=== PATIENT | female | born 1995 | race American Indian/Alaskan Native ===

== ENCOUNTER 2017-02-23 14:29 | Emergency (ER) | payer MEDICAID, OTHER ==
[2017-02-23 15:52] LABS: Urine Drugs of Abuse Note Disclamer
[2017-02-23 16:03] LABS: Basophils % (Auto) 0.9 % (0.0-1.8); Eosinophils % (Auto) 3.4 % (0.0-4.3); Hematocrit 40.6 % (30.3-42.9); Hemoglobin 13.6 gm/dl (10.1-14.3); Mean Corpuscular HGB Conc 34 % (30-34); Mean Corpuscular Hemoglobin 29 pg (28-32); Mean Corpuscular Volume 87 fl (79-97); Platelet Count 195 K/mm3 (140-440); Red Blood Count 4.65 M/mm3 (3.65-5.03); Red Cell Distribution Width 14.5 % (13.2-15.2); White Blood Count 6.4 K/mm3 (4.5-11.0)
[2017-02-23 16:04] LABS: Anion Gap 19 mmol/L; BUN/Creatinine Ratio 11.25; Blood Urea Nitrogen 9 mg/dL (7-17); Calcium 9.3 mg/dL (8.4-10.2); Carbon Dioxide 21 mmol/L (22-30); Glucose 85 mg/dL (65-100); Potassium 4.3 mmol/L (3.6-5.0); Sodium 140 mmol/L (137-145)
[2017-02-23 16:12] LABS: Bacteria,Urine 2+ /HPF (Negative); Bilirubin,Urine NEG (Negative); Blood,Urine NEG (Negative); Ketones,Urine TR mg/dL (Negative); Leukocyte Esterase,Urine MOD (Negative); Mucus,Urine 3+ /HPF; Nitrite,Urine NEG (Negative)
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
[2017-02-23] MEDS ORDERED: HABITROL TD ONE (21:26)
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
[2017-02-24 18:17] VITALS: BP 119/74
== END 2017-02-24 20:15 ==
LOC: EDBD → EEVIPCON 14:29 → ED 14:29
DX: O9A.211 Injury, poisoning and certain other consequences of external causes complicating pregnancy, first trimester (principal); O99.331 Smoking (tobacco) complicating pregnancy, first trimester; T54.92XA Toxic effect of unspecified corrosive substance, intentional self-harm, initial encounter; F12.10 Cannabis abuse, uncomplicated; Z3A.08 8 weeks gestation of pregnancy; Y92.89 Other specified places as the place of occurrence of the external cause
CPT/HCPCS: 36415; 80048; 80307; 81001; 81025; 85025; 99285; G0480; 80320

== ENCOUNTER 2017-03-07 11:41 | Emergency (ER) | payer OTHER ==
[2017-03-07 12:50] VITALS: BP 109/70
[2017-03-07 13:12] LABS: Basophils % (Auto) 0.8 % (0.0-1.8); Eosinophils % (Auto) 2.9 % (0.0-4.3); Hematocrit 39.8 % (30.3-42.9); Hemoglobin 13.3 gm/dl (10.1-14.3); Mean Corpuscular HGB Conc 33 % (30-34); Mean Corpuscular Hemoglobin 29 pg (28-32); Mean Corpuscular Volume 88 fl (79-97); Platelet Count 194 K/mm3 (140-440); Red Blood Count 4.53 M/mm3 (3.65-5.03); Red Cell Distribution Width 14.1 % (13.2-15.2); White Blood Count 6.7 K/mm3 (4.5-11.0)
[2017-03-07 13:28] LABS: Anion Gap 17 mmol/L; BUN/Creatinine Ratio 15.71; Blood Urea Nitrogen 11 mg/dL (7-17); Calcium 9.4 mg/dL (8.4-10.2); Carbon Dioxide 25 mmol/L (22-30); Chloride 98.3 mmol/L (98-107); Glucose 76 mg/dL (65-100); Potassium 4.1 mmol/L (3.6-5.0); Sodium 136 mmol/L (137-145)
[2017-03-07 13:53] LABS: Bacteria,Urine 2+ /HPF (Negative); Bilirubin,Urine NEG (Negative); Blood,Urine NEG (Negative); Ketones,Urine NEG (Negative); Leukocyte Esterase,Urine LG (Negative); Mucus,Urine FEW /HPF; Nitrite,Urine NEG (Negative); Protein,Urine <15 mg/dL mg/dL (Negative)
--- NOTE | 2017-03-08 14:39 | ED Elopement Review ---
ED Pt Elopement review - Results review Lab results: Laboratory Tests 03/07/17 03/07/17 03/07/17 12:53 12:53 12:53 WBC 6.7 RBC 4.53 Hgb 13.3 Hct 39.8 MCV 88 MCH 29 MCHC 33 RDW 14.1 Plt Count 194 Lymph % (Auto) 41.2 H [place] % (Auto) 7.8 H Eos % (Auto) 2.9 Baso % (Auto) 0.8 Lymph # 2.8 [place] # 0.5 Eos # 0.2 Baso # 0.1 Seg Neutrophils % 47.3 Seg Neutrophils # 3.2 Sodium 136 L Potassium 4.1 Chloride 98.3 Carbon Dioxide 25 Anion Gap 17 BUN 11 Creatinine 0.7 Estimated GFR > 60 BUN/Creatinine Ratio 15.71 Glucose 76 Calcium 9.4 HCG, Quant [id number] H Urine Color Urine Turbidity Urine pH Ur Specific [place] Urine Protein Urine Glucose (UA) Urine Ketones Urine Blood Urine Nitrite Urine Bilirubin Urine Urobilinogen Ur Leukocyte Esterase Urine WBC (Auto) Urine RBC (Auto) U Epithel Cells (Auto) Urine Bacteria (Auto) Urine Mucus 03/07/17 13:28 WBC RBC Hgb Hct MCV MCH MCHC RDW Plt Count Lymph % (Auto) [place] % (Auto) Eos % (Auto) Baso % (Auto) Lymph # [place] # Eos # Baso # Seg Neutrophils % Seg Neutrophils # Sodium Potassium Chloride Carbon Dioxide Anion Gap BUN Creatinine Estimated GFR BUN/Creatinine Ratio Glucose Calcium HCG, Quant Urine Color Yellow Urine Turbidity Clear Urine pH 5.0 Ur Specific [place] 1.025 Urine Protein <15 mg/dl Urine Glucose (UA) Neg Urine Ketones Neg Urine Blood Neg Urine Nitrite Neg Urine Bilirubin Neg Urine Urobilinogen 2.0 Ur Leukocyte Esterase Lg Urine WBC (Auto) 5.0 Urine RBC (Auto) 1.0 U Epithel Cells (Auto) 8.0 Urine Bacteria (Auto) 2+ Urine Mucus Few - Call Back decision Pt Call Back Decision: Call pt to return to ED KIRAN (early with abdominal pain should be further evaluated. Consider pelvic ultrasound)
== END 2017-03-07 13:28 | disposition left against medical advice (07) ==
LOC: ED 11:41
DX: O26.891 Other specified pregnancy related conditions, first trimester (principal); R10.30 Lower abdominal pain, unspecified; F31.9 Bipolar disorder, unspecified; F17.200 Nicotine dependence, unspecified, uncomplicated; Z3A.01 Less than 8 weeks gestation of pregnancy; Z91.040 Latex allergy status; Z53.21 Procedure and treatment not carried out due to patient leaving prior to being seen by health care provider
CPT/HCPCS: 36415; 80048; 81001; 84702; 85025

== ENCOUNTER 2017-03-09 08:57 | Emergency (ER) | payer OTHER ==
[2017-03-09 09:40] LABS: Basophils % (Auto) 0.8 % (0.0-1.8); Eosinophils % (Auto) 2.5 % (0.0-4.3); Hemoglobin 13.6 gm/dl (10.1-14.3); Mean Corpuscular HGB Conc 32 % (30-34); Mean Corpuscular Hemoglobin 29 pg (28-32); Mean Corpuscular Volume 88 fl (79-97); Platelet Count 208 K/mm3 (140-440); Red Blood Count 4.75 M/mm3 (3.65-5.03); Red Cell Distribution Width 14.3 % (13.2-15.2); White Blood Count 6.5 K/mm3 (4.5-11.0)
[2017-03-09] MEDS ORDERED: PROVENTIL IH ONE (09:46)
--- NOTE | 2017-03-09 09:49 | Emergency Department Report ---
HPI - General Chief Complaint: Abdominal Pain Time Seen by Provider: 03/09/17 09:25 - HPI HPI: 21 year-old female presents to the emergency department with a 2 day history of some lower abdominal discomfort that seems to radiate towards her back as well as some shortness of breath. She denies any fever, cough, chest pain, nausea, vomiting or diaphoresis. Patient is currently and thinks she is about 7 weeks along but admits that it may be further than that. She goes to [facility]. She is on vitamins. She has not taken anything for her symptoms prior to presentation. She denies tobacco abuse. No recent travel or sick contacts at home. She denies any dysuria, discharge or vaginal bleeding but does say that today she went to wipe herself and noticed some yellowy mucus on the toilet paper. ED Past Medical Hx - Past Medical History Previous Medical History?: Yes Hx Hypertension: No Hx Congestive Heart Failure: No Hx Diabetes: No Hx Deep Vein Thrombosis: No Hx Renal Disease: No Hx Sickle Cell Disease: No Hx Seizures: No Hx Psychiatric Treatment: Yes (bipolar / depression) Hx Asthma: No Hx COPD: No Hx HIV: No Additional medical history: TNC sucide attemps - Surgical History Past Surgical History?: Yes Additional Surgical History: - Social History Smoking Status: Never Smoker Substance Use Type: None - Medications Home Medications: Home Medications Medication Instructions Recorded Confirmed Last Taken Type ALBUTEROL Inhaler [ProAir HFA 2 puff IH QID PRN #1 inhalation 03/09/17 Unknown Rx Inhaler] Nitrofurantoin Kerr/M-Cryst 100 mg PO Q12HR #14 capsule 03/09/17 Unknown Rx [Macrobid CAP] ED Review of Systems ROS: Stated complaint: [place]/ BACK PAIN/ 7 WEEKS PREG Other details as noted in HPI Comment: All other systems reviewed and negative Constitutional: denies: chills, fever Eyes: denies: eye pain, eye discharge, vision change ENT: denies: ear pain, throat pain Respiratory: shortness of breath. denies: cough, wheezing Cardiovascular: denies: chest pain, palpitations Gastrointestinal: abdominal pain. denies: vomiting Genitourinary: denies: dysuria, hematuria Musculoskeletal: back pain. denies: arthralgia Skin: denies: rash, lesions Neurological: denies: headache, weakness, paresthesias Physical Exam - Physical Exam Vital Signs: Vital Signs 03/09/17 09:08 Temperature 98.3 F Pulse Rate 99 H Respiratory 18 Rate Blood Pressure 121/86 O2 Sat by Pulse 100 Oximetry Physical Exam: GENERAL: The patient is well-developed well-nourished. HENT: Normocephalic. Atraumatic. Patient has moist mucous membranes. EYES: Extraocular motions are intact. Pupils equal reactive to light bilaterally. NECK: Supple. Trachea is midline. CHEST/LUNGS: Clear to auscultation. There is no respiratory distress noted. HEART/CARDIOVASCULAR: Regular. There is no tachycardia. There is no gallop rub or murmur. ABDOMEN: Abdomen is soft, nontender. Patient has normal bowel sounds. There is no abdominal distention. SKIN: Skin is warm and dry. NEURO: The patient is awake, alert, and oriented. The patient is cooperative. The patient has no focal neurologic deficits. The patient has normal speech. MUSCULOSKELETAL: There is no tenderness or deformity. There is no limitation range of motion. There is no evidence of acute injury. ED Course Vital Signs 03/09/17 09:08 Temperature 98.3 F Pulse Rate 99 H Respiratory 18 Rate Blood Pressure 121/86 O2 Sat by Pulse 100 Oximetry ED Medical Decision Making - Lab Data Result diagrams: 03/09/17 09:23 03/09/17 09:23 - Radiology Data Radiology results: report reviewed, image reviewed interpreted by me: Chest x-ray does not show any acute process. There are no pleural effusions, obvious pneumonia and there is no pneumothorax. Obstetric/transvaginal ultrasound shows a live intrauterine at 5 weeks and 5 days. Small subchorionic hemorrhage. - Medical Decision Making 21-year-old female presents to the emergency department with a few days of some shortness of breath that is intermittent as well as some lower abdominal discomfort while . There has been no vaginal bleeding, discharge, dysuria. She does not appear to be in any acute distress. She has a healthy 80 hCG/ hormone and ultrasound shows a live intrauterine at about 6 weeks with a small subchorionic bleed. A chest x-ray was done with the abdomen shielded and the results does not show any signs of pneumonia, pleural effusions or pneumothorax. She was given a dose of albuterol via nebulized treatment. She was reevaluated multiple times for multiple hours and says she is feeling greatly improved. The patient is very low on the well's score and has about a 1% probability, based on this, for pulmonary embolism, which is the same as the general population. She has not had any tachycardia, hypoxia, chest pain and no longer has any shortness of breath. The patient will be discharged home to follow up with [facility] and will be given an albuterol inhaler to use for any shortness of breath but has been encouraged to return to the emergency Department with any worsening of her symptoms or any acute distress. Critical Care Time: No Critical care attestation.: If time is entered above; I have spent that time in minutes in the direct care of this critically ill patient, excluding procedure time. ED Disposition Clinical Impression: Shortness of breath Qualifiers: Weeks of gestation: less than 8 weeks Qualified Code(s): Z3A.01 - Less than 8 weeks gestation of UTI (urinary tract infection) Qualifiers: Urinary tract infection type: acute cystitis Hematuria presence: without hematuria Qualified Code(s): N30.00 - Acute cystitis without hematuria Disposition: TO HOME OR SELFCARE Is pt being admited?: No Condition: Stable Instructions: (ED), Urinary Tract Infection in Women (ED), Abdominal Pain (ED), Dyspnea (ED) Additional Instructions: Please follow up with my [facility] in the next few days for further evaluation of her , resolution of your urinary tract infection and for any other OB/ [employer]ER complaints. I have also given you a referral for some local primary care physicians. Return to the emergency Department with any worsening of your symptoms or any acute distress. I have prescribed you some Macrobid, an antibiotic, for your urinary tract infection. I have also given you a prescription for an albuterol inhaler for any wheezing or shortness of breath. Do not use the albuterol inhaler once you get to your third trimester, unless cleared by your [facility]. Prescriptions: ALBUTEROL Inhaler [ProAir HFA Inhaler] 2 puff IH QID PRN #1 inhalation PRN Reason: Shortness Of Breath Nitrofurantoin Kerr/M-Cryst [Macrobid CAP] 100 mg PO Q12HR #14 capsule Referrals: RODRICK MELGAR MD [Primary Care Provider] - 3-5 Days THOMAS MARIO JR, MD [Staff Physician] - 3-5 Days SUNDAY OCONNELL MD [Staff Physician] - 3-5 Days [facility] [Outside] - 3-5 Days [facility] [Provider Group] - 3-5 Days Time of Disposition: 12:21
[2017-03-09 10:01] LABS: Alanine Aminotransferase 16 units/L (7-56); Albumin 4.3 g/dL (3.9-5); Albumin/Globulin Ratio 1.4 %; Alkaline Phosphatase 65 units/L (35-129); Anion Gap 18 mmol/L; BUN/Creatinine Ratio 11.42; Blood Urea Nitrogen 8 mg/dL (7-17); Calcium 9.3 mg/dL (8.4-10.2); Carbon Dioxide 23 mmol/L (22-30); Chloride 101.1 mmol/L (98-107); Glucose 91 mg/dL (65-100); Lipase 33 units/L (13-60); Potassium 4.2 mmol/L (3.6-5.0); Sodium 138 mmol/L (137-145); Total Protein 7.4 g/dL (6.3-8.2)
[2017-03-09 10:20] LABS: Bacteria,Urine 3+ /HPF (Negative); Bilirubin,Urine NEG (Negative); Blood,Urine NEG (Negative); Ketones,Urine NEG (Negative); Leukocyte Esterase,Urine LG (Negative); Mucus,Urine 1+ /HPF; Nitrite,Urine NEG (Negative)
[2017-03-09] MEDS ORDERED: MACROBID PO ONE (10:54)
--- NOTE | 2017-03-09 12:10 | Ultrasound Report ---
ULTRASOUND OB LESS THAN 14 WEEKS FETUS ULTRASOUND OB TRANSVAGINAL HISTORY: Abdominal pain during . TECHNIQUE: Transabdominal and transvaginal ultrasound with color and spectral doppler interrogation. The uterus measures 8.4 x 5.9 x 6.0 cm. The uterus is retroverted. Small intrauterine gestational sac containing a pole and yolk sac is identified. Heart rate measures 90 beats per minute. [place]-rump length measures 2.2 mm which correlates with a 5 weeks, 5 day . Estimated due date is 11/04/17. A small subchorionic hemorrhage is identified along the superior border of the gestational sac measuring 1.0 x 0.4 x 1.1 cm. Both ovaries are visualized. The left ovary is normal. The right ovary contains a 2.2 cm corpus luteum cyst. Trace pelvic fluid appears physiologic. IMPRESSION: Viable, single intrauterine . Small subchorionic hemorrhage.
--- NOTE | 2017-03-09 12:15 | XRay Report ---
AP CHEST: HISTORY: Shortness of breath AP view of the chest demonstrates a normal mediastinal and cardiac contour with clear lungs and normal bony and soft tissue structures. IMPRESSION: Unremarkable AP chest.
[2017-03-09 12:31] VITALS: BP 117/73
== END 2017-03-09 12:31 | disposition home or self-care (01) ==
LOC: ED 08:57
DX: O23.41 Unspecified infection of urinary tract in pregnancy, first trimester (principal); O26.891 Other specified pregnancy related conditions, first trimester; R06.02 Shortness of breath; Z3A.01 Less than 8 weeks gestation of pregnancy; F31.9 Bipolar disorder, unspecified
CPT/HCPCS: 36415; 71010; 76801; 76817; 80053; 81001; 83690; 84702; 85025; 93005; 93010; 94640

== ENCOUNTER 2017-03-15 21:29 | Emergency (ER) | payer OTHER ==
[2017-03-15 23:22] LABS: Alanine Aminotransferase 15 units/L (7-56); Albumin 3.9 g/dL (3.9-5); Albumin/Globulin Ratio 1.2 %; Alkaline Phosphatase 63 units/L (35-129); Anion Gap 18 mmol/L; Blood Urea Nitrogen 14 mg/dL (7-17); Carbon Dioxide 22 mmol/L (22-30); Chloride 99.7 mmol/L (98-107); Glucose 98 mg/dL (65-100); Potassium 4.1 mmol/L (3.6-5.0); Sodium 136 mmol/L (137-145); Total Protein 7.2 g/dL (6.3-8.2)
[2017-03-15 23:31] LABS: Hematocrit 38.9 % (30.3-42.9); Hemoglobin 12.5 gm/dl (10.1-14.3); Mean Corpuscular HGB Conc 32 % (30-34); Mean Corpuscular Hemoglobin 29 pg (28-32); Mean Corpuscular Volume 88 fl (79-97); Platelet Count 215 K/mm3 (140-440); Red Cell Distribution Width 14.5 % (13.2-15.2); White Blood Count 9.5 K/mm3 (4.5-11.0)
[2017-03-15 23:46] LABS: Bacteria,Urine 1+ /HPF (Negative); Bilirubin,Urine NEG (Negative); Blood,Urine NEG (Negative); Ketones,Urine NEG (Negative); Leukocyte Esterase,Urine SM (Negative); Mucus,Urine FEW /HPF; Nitrite,Urine NEG (Negative); Protein,Urine <15 mg/dL mg/dL (Negative)
[2017-03-16] MEDS ORDERED: TYLENOL PO ONE (06:22)
--- NOTE | 2017-03-16 07:25 | Emergency Department Report ---
ED General Adult HPI - General Chief complaint: Neck Pain/Injury Stated complaint: CP/NECK PAIN/PREG 6WKS Time Seen by Provider: 03/16/17 06:07 Source: patient Mode of arrival: Wheelchair Limitations: No Limitations - History of Present Illness Initial comments: Patient is a 21-year-old female who presents with neck pain that started 2 days ago and radiates to her left upper chest and she states that the onset was gradual. The pain is located in her left neck and the pain is a 7 out of 10 moving makes the pain worse resting makes it better. It is an achy type of pain it is intermittent. Patient denies having any trauma to her neck she also states that she has nausea and vomiting after taking her urinary tract infection medication. Patient is 6 weeks . She denies having any vaginal bleeding or any pelvic pain or any vaginal discharge. Severity scale (0 -10): 5 - Related Data Previous Rx's Medication Instructions Recorded Last Taken Type Nitrofurantoin Rhea/M-Cryst 100 mg PO Q12HR #14 capsule 03/09/17 Unknown Rx [Macrobid CAP] ALBUTEROL Inhaler [ProAir HFA 2 puff IH QID PRN #1 inhalation 03/16/17 Unknown Rx Inhaler] Acetaminophen [Acetaminophen TAB] 1,000 mg PO Q6HR PRN #60 tablet 03/16/17 Unknown Rx Allergies Allergy/AdvReac Type Severity Reaction Status Date / Time latex Allergy Rash Verified 03/07/17 12:45 ED Review of Systems ROS: Stated complaint: CP/NECK PAIN/PREG 6WKS Other details as noted in HPI Constitutional: denies: chills, fever Eyes: denies: eye pain, eye discharge, vision change ENT: denies: ear pain, throat pain Respiratory: denies: cough, shortness of breath, wheezing Cardiovascular: denies: chest pain, palpitations Endocrine: no symptoms reported Gastrointestinal: nausea, vomiting. denies: abdominal pain, diarrhea Genitourinary: denies: urgency, dysuria, discharge Musculoskeletal: other (neck pain). denies: back pain, joint swelling, arthralgia Skin: denies: rash, lesions Neurological: denies: headache, weakness, paresthesias Psychiatric: denies: anxiety, depression Hematological/Lymphatic: denies: easy bleeding, easy bruising ED Past Medical Hx - Past Medical History Hx Hypertension: No Hx Congestive Heart Failure: No Hx Diabetes: No Hx Deep Vein Thrombosis: No Hx Renal Disease: No Hx Sickle Cell Disease: No Hx Seizures: No Hx Psychiatric Treatment: Yes (bipolar / depression) Hx Asthma: No Hx COPD: No Hx HIV: No Additional medical history: TNC sucide attemps - Surgical History Additional Surgical History: - Social History Smoking Status: Current Every Day Smoker Substance Use Type: None - Medications Home Medications: Home Medications Medication Instructions Recorded Confirmed Last Taken Type Nitrofurantoin Rhea/M-Cryst 100 mg PO Q12HR #14 capsule 03/09/17 Unknown Rx [Macrobid CAP] ALBUTEROL Inhaler [ProAir HFA 2 puff IH QID PRN #1 inhalation 03/16/17 Unknown Rx Inhaler] Acetaminophen [Acetaminophen TAB] 1,000 mg PO Q6HR PRN #60 tablet 03/16/17 Unknown Rx ED Physical Exam - General Limitations: No Limitations General appearance: alert, in no apparent distress - Head Head exam: Present: atraumatic, normocephalic - Eye Eye exam: Present: normal appearance - ENT ENT exam: Present: mucous membranes moist - Neck Neck exam: Present: normal inspection, other (paracervical tenderness) - Respiratory Respiratory exam: Present: normal lung sounds bilaterally. Absent: respiratory distress - Cardiovascular Cardiovascular Exam: Present: regular rate, normal rhythm. Absent: systolic murmur, diastolic murmur, rubs, gallop - GI/Abdominal GI/Abdominal exam: Present: soft, normal bowel sounds - Extremities Exam Extremities exam: Present: normal inspection - Back Exam Back exam: Present: normal inspection - Neurological Exam Neurological exam: Present: alert, oriented X3 - Psychiatric Psychiatric exam: Present: normal affect, normal mood - Skin Skin exam: Present: warm, dry, intact, normal color. Absent: rash ED Course Vital Signs 03/15/17 03/16/17 22:14 04:54 Temperature 99.1 F 98.2 F Pulse Rate 77 64 Respiratory 18 17 Rate Blood Pressure 116/74 Blood Pressure 107/58 [Left] O2 Sat by Pulse 100 100 Oximetry - Reevaluation(s) Reevaluation #1: 03/16/17 07:25 Patient is feeling better after Tylenol I will send patient home with albuterol inhaler and Tylenol prescription. ED Medical Decision Making - Lab Data Result diagrams: 03/15/17 22:41 03/15/17 22:41 Laboratory Results - last 24 hr 03/15/17 03/15/17 03/15/17 22:41 22:41 22:41 WBC 9.5 RBC 4.40 Hgb 12.5 Hct 38.9 MCV 88 MCH 29 MCHC 32 RDW 14.5 Plt Count 215 Sodium 136 L Potassium 4.1 Chloride 99.7 Carbon Dioxide 22 Anion Gap 18 BUN 14 Creatinine 0.7 Estimated GFR > 60 BUN/Creatinine Ratio 20.00 Glucose 98 Calcium 9.0 Total Bilirubin 0.20 AST 18 ALT 15 Alkaline Phosphatase 63 Total Protein 7.2 Albumin 3.9 Albumin/Globulin Ratio 1.2 HCG, Quant 45459 H Urine Color Urine Turbidity Urine pH Ur Specific [place] Urine Protein Urine Glucose (UA) Urine Ketones Urine Blood Urine Nitrite Urine Bilirubin Urine Urobilinogen Ur Leukocyte Esterase Urine WBC (Auto) Urine RBC (Auto) U Epithel Cells (Auto) Urine Bacteria (Auto) Amorphous Crystals Urine Mucus 03/15/17 23:00 WBC RBC Hgb Hct MCV MCH MCHC RDW Plt Count Sodium Potassium Chloride Carbon Dioxide Anion Gap BUN Creatinine Estimated GFR BUN/Creatinine Ratio Glucose Calcium Total Bilirubin AST ALT Alkaline Phosphatase Total Protein Albumin Albumin/Globulin Ratio HCG, Quant Urine Color Yellow Urine Turbidity Slightly-cloudy Urine pH 7.0 Ur Specific [place] 1.023 Urine Protein <15 mg/dl Urine Glucose (UA) Neg Urine Ketones Neg Urine Blood Neg Urine Nitrite Neg Urine Bilirubin Neg Urine Urobilinogen 2.0 Ur Leukocyte Esterase Sm Urine WBC (Auto) 2.0 Urine RBC (Auto) 2.0 U Epithel Cells (Auto) 6.0 Urine Bacteria (Auto) 1+ Amorphous Crystals Few Urine Mucus Few - EKG Data 03/16/17 07:27 EKG shows normal sinus rhythm with sinus arrhythmia normal axis no ST segment elevations or T-wave inversions. - Medical Decision Making Chief medical diagnosis: Cervicalgia Differential medical diagnosis: muscle spasm, I will get CBC, CMP, hCG serum, EKG for nausea Patient is feeling better and tolerated by mouth Tylenol I will send. Patient with a prescription home for her albuterol inhaler which she lost and Tylenol. Initial verbal discharge instructions were given discussed the patient is a follow-up with her [facility]OLOGY [facility]. Patient does not need any imaging for her neck pain as she had no trauma towards the area and can move it without any distress. Critical care attestation.: If time is entered above; I have spent that time in minutes in the direct care of this critically ill patient, excluding procedure time. ED Disposition Clinical Impression: Neck pain Qualifiers: Weeks of gestation: less than 8 weeks Qualified Code(s): Z3A.01 - Less than 8 weeks gestation of Disposition: TO HOME OR SELFCARE Is pt being admited?: No Does the pt Need Aspirin: No Condition: Stable Prescriptions: Acetaminophen [Acetaminophen TAB] 1,000 mg PO Q6HR PRN #60 tablet PRN Reason: Pain ALBUTEROL Inhaler [ProAir HFA Inhaler] 2 puff IH QID PRN #1 inhalation PRN Reason: Shortness Of Breath Referrals: PRIMARY CAREMD [Primary Care Provider] - 3-5 Days RIGOBERTO MONTERO MD [Staff Physician] - 3-5 Days Time of Disposition: 07:38
[2017-03-16 07:27] VITALS: BP 110/62
== END 2017-03-16 08:09 | disposition home or self-care (01) ==
LOC: ED 21:29
DX: O26.891 Other specified pregnancy related conditions, first trimester (principal); M54.2 Cervicalgia; O99.331 Smoking (tobacco) complicating pregnancy, first trimester; Z3A.01 Less than 8 weeks gestation of pregnancy
CPT/HCPCS: 36415; 80053; 81001; 84702; 85027; 93005; 93010

== ENCOUNTER 2017-10-12 16:23 | Outpatient (CLI) | payer OTHER ==
[2017-10-12] MEDS ORDERED: LACTATED RINGERS 500 ML IV ONE (17:41)
[2017-10-12 17:56] VITALS: BP 100/60
== END 2017-10-12 18:09 | disposition home or self-care (01) ==
LOC: EDBD 16:23 → TRG 16:23
PROVIDERS: ATTEND Obstetrics & Gynecology Gynecology
DX: O47.1 False labor at or after 37 completed weeks of gestation (principal); Z3A.37 37 weeks gestation of pregnancy
CPT/HCPCS: 59025

== ENCOUNTER 2019-02-18 13:47 | Emergency (ER) | payer OTHER ==
[2019-02-18 14:11] VITALS: BP 132/77
--- NOTE | 2019-02-18 14:16 | Emergency Department Report ---
Chief Complaint: Medical Clearance Stated Complaint: TB TEST/SYFILIS TEST Time Seen by Provider: 02/18/19 14:07 - HPI History of Present Illness: This is a 23-year-old male nontoxic well in appearance with no signs of distress presents to the ED for TB testing and syphilles for home [facility] request. Patient denies any symptoms. Denies any pain. Denies any fever, chills, headache, nausea, vomiting, chest pain or SOB. Denies any other complaints. MSE screening note: Focused history and physical exam performed. Due to findings the following was ordered: ED Medical Decision Making - Medical Decision Making Patient is referred to multiple locations that does perform TB testing and syphilles testing. Patient has been given address and referrals print outs with numbers and locations. Currently patient is stable and has no complaints or symptoms. ED Disposition for MSE Clinical Impression: Referral needed Disposition: DC-01 TO HOME OR SELFCARE Is pt being admited?: No Does the pt Need Aspirin: No Condition: Stable Additional Instructions: You have been given several referrals that can help with you with those testing. Please call them and follow-up with them. Follow-up with a primary care doctor or if symptoms worsen and continue return to the emergency department as soon as possible. Referrals: PRIMARY CAREMD [Referring] - 3-5 Days JASMYNE SAMANIEGO MD [Staff Physician] - 3-5 Days [facility] [Outside] - 3-5 Days [facility] [Outside] - 3-5 Days
== END 2019-02-18 14:30 | disposition home or self-care (01) ==
LOC: ED 13:47
DX: Z11.1 Encounter for screening for respiratory tuberculosis (principal)
CPT/HCPCS: 99282